=== PATIENT | female | born 1965 | race African-American/Black ===

== ENCOUNTER 2019-09-17 18:05 | Inpatient (IN) | payer OTHER ==
--- NOTE | 2019-09-17 19:04 | BHS.RME ---
Substance Use & Tx History - Substance Use History Alcohol Substance amount: 2 pints Frequency of use: Daily Substance route: Oral - Last Treatment Date of last treatment: unknown Where was last treatment: Detox Physical/Psych/Mental Status - Behavior Eye Contact: Normal - Cooperativeness Cooperativeness: Cooperative - Thinking Thought Processes: Logical - Physical Health Problems Is patient presently having any pain?: Yes Does patient presently have any injuries (include location): No Does patient currently have a fever: No CIWA Nausea/Vomitin-Mild Nausea/No Vomiting Muscle Tremors: 4-Moderate,w/Arms Extend Anxiety: 2 Agitation: 4-Moderately Restless Paroxysmal Sweats: No Perspiration Orientation: 0-Oriented Tacttile Disturbances: 0-None Auditory Disturbances: 0-None Visual Disturbances: 3-Moderate Sensitivity Headache: 2-Mild CIWA-Ar Total Score: 16
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
[2019-09-17] MEDS ORDERED: ALBUTEROL SO4 HFA INHALER IH PRN (19:15)
[2019-09-17] MEDS ORDERED: ALBUTEROL SO4 0.083% IH SOL 2.5 MG/3 ML VIAL.NEB. NEB PRN (19:15)
[2019-09-17] MEDS ORDERED: NICOTINE POLACRILEX 2 MG GUM BUC PRN (20:03)
[2019-09-17] MEDS ORDERED: BISMUTH SUBSALICYLATE 524 MG/30 ML UD PO PRN (20:03)
[2019-09-17] MEDS ORDERED: MENTHOL/PHENOL 1 EACH UD MM PRN (20:03)
[2019-09-17] MEDS ORDERED: ACETAMINOPHEN 325 MG TABLET (FP) PO PRN ×2 (20:03)
[2019-09-17] MEDS ORDERED: MAGNESIUM HYDROX 2400MG/30ML ORAL SUSPENSION 30 ML CUP PO PRN (20:03)
[2019-09-17] MEDS ORDERED: MAG HYDROX/AL HYDROX/SIMETH 30 ML UNIT-DOSE CUP PO PRN (20:03)
[2019-09-17] MEDS ORDERED: hydrOXYzine PAMOATE 25 MG CAPSULE (FP) PO PRN (20:03)
[2019-09-17] MEDS ORDERED: METHOCARBAMOL 500 MG TABLET PO PRN (20:03)
[2019-09-17] MEDS ORDERED: IBUPROFEN 400 MG TABLET (FP) PO PRN (20:03)
[2019-09-17] MEDS ORDERED: MAGNESIUM CITRATE 300 ML BOTTLE PO PRN (20:03)
[2019-09-17] MEDS ORDERED: chlordiazePOXIDE HCL 10 MG CAPSULE PO PRN (20:06)
[2019-09-17 20:41] VITALS: BMI 25.1
[2019-09-17] MEDS: THIAMINE HCL 100 MG TABLET (FP) PO SCH (21:56)
[2019-09-17] MEDS: chlordiazePOXIDE HCL 25 MG CAPSULE PO SCH (21:56)
[2019-09-17] MEDS: MELATONIN 5 MG TABLETS PO PRN (21:56)
[2019-09-18] MEDS: chlordiazePOXIDE HCL 25 MG CAPSULE PO SCH ×3 (05:28→21:43)
[2019-09-18] MEDS ORDERED: METHADONE HCL 10 MG TABLET PO ONE (09:04)
[2019-09-18] MEDS ORDERED: PANTOPRAZOLE 40 MG TABLET PO ONE (09:41)
[2019-09-18] MEDS ORDERED: METHADONE 80 MG, METHADONE 5 MG PO ONE (10:05)
[2019-09-18] MEDS ORDERED: METHADONE HCL 40 MG DISPERSABLE TABLET ONE (10:10)
[2019-09-18] MEDS ORDERED: METHADONE HCL 5 MG TABLET ONE (10:11)
--- NOTE | 2019-09-18 10:41 | PN ---
S CIWA - CIWA Score Nausea/Vomitin-Mild Nausea/No Vomiting Muscle Tremors: 2 Anxiety: 2 Agitation: 2 Paroxysmal Sweats: No Perspiration Orientation: 0-Oriented Tacttile Disturbances: 1-Very Mild Itch/Numbness Auditory Disturbances: 0-None Visual Disturbances: 0-None Headache: 1-Very Mild CIWA-Ar Total Score: 9 S Progress Note (SOAP) Subjective: alert,irritable,anxious,interrupted ,abdominal pain,nausea,tremor Objective: 09/18/19 10:45 Vital Signs Temperature 98.1 F 09/18/19 08:37 Pulse Rate 70 09/18/19 08:37 Respiratory Rate 16 09/18/19 08:37 Blood Pressure 143/84 09/18/19 08:37 O2 Sat by Pulse Oximetry (%) 97 09/18/19 05:20 09/18/19 10:45 labs pending Assessment: 09/18/19 10:46 withdrawal symptom 09/18/19 10:47 abdomen soft,pain in epigastrium,no tenderness Plan: continue detox librium regimen,blood for amylase and lipase,protonix 40 mgs po daily
[2019-09-18 10:46] LABS: HEMOGLOBIN 11.7 GM/dL (10.7-15.3); MCH 26.3 pg (25.7-33.7); MCHC 31.6 g/dl (32.0-36.0); MEAN CELL VOLUME 83.2 fl (80-96); MEAN PLT VOLUME 9.3 fl (7.5-11.1); PLATELET COUNT 257 K/MM3 (134-434); RBC 4.45 M/mm3 (3.60-5.2); RDW 14.1 % (11.6-15.6); WHITE BLOOD COUNT 4.5 K/mm3 (4.0-10.0)
[2019-09-18 11:03] LABS: BLOOD UREA NITROGEN 20.6 mg/dL (7-18); POTASSIUM 3.9 mmol/L (3.5-5.1)
[2019-09-18 11:05] LABS: ALBUMIN 3.5 g/dl (3.4-5.0); BILIRUBIN,TOTAL 0.4 mg/dL (0.2-1); CALCIUM 9.3 mg/dL (8.5-10.1); TOT PROT 7.6 g/dl (6.4-8.2)
[2019-09-18] MEDS: PRENATAL VITAMINS W/ FOLIC ACID TABLET (FP) PO SCH (11:11)
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
[2019-09-18] MEDS: THIAMINE HCL 100 MG TABLET (FP) PO SCH (21:44)
[2019-09-18] MEDS: MELATONIN 5 MG TABLETS PO PRN (21:45)
[2019-09-18] MEDS: QUEtiapine FUMARATE 50 MG TABLET PO SCH (22:24)
[2019-09-19] MEDS ORDERED: METHADONE HCL 5 MG TABLET ONE (04:08)
[2019-09-19] MEDS ORDERED: METHADONE HCL 40 MG DISPERSABLE TABLET ONE (04:08)
[2019-09-19] MEDS: METHADONE 80 MG, METHADONE 5 MG PO SCH (05:27)
[2019-09-19] MEDS: chlordiazePOXIDE 5 MG CAPSULE PO SCH ×3 (05:27→22:25)
[2019-09-19] MEDS ORDERED: METHADONE HCL 40 MG DISPERSABLE TABLET PO SCH (06:00)
[2019-09-19] MEDS: PRENATAL VITAMINS W/ FOLIC ACID TABLET (FP) PO SCH (10:31)
[2019-09-19] MEDS: HYDROCHLOROTHIAZIDE 25 MG TABLET (FP) PO SCH (10:32)
--- NOTE | 2019-09-19 10:52 | PN ---
S CIWA - CIWA Score Nausea/Vomitin Muscle Tremors: 2 Anxiety: 2 Agitation: 2 Paroxysmal Sweats: No Perspiration Orientation: 0-Oriented Tacttile Disturbances: 0-None Auditory Disturbances: 0-None Visual Disturbances: 0-None Headache: 1-Very Mild CIWA-Ar Total Score: 9 BHS Progress Note (SOAP) Subjective: alert,irritable,anxious,interrupted sleep,tremor,nausea,no abdominal pain Objective: 09/19/19 10:50 Vital Signs Temperature 97.3 F L 09/19/19 08:42 Pulse Rate 88 09/19/19 08:42 Respiratory Rate 18 09/19/19 08:42 Blood Pressure 135/90 09/19/19 08:42 O2 Sat by Pulse Oximetry (%) 97 09/19/19 06:27 09/19/19 10:50 Laboratory Last Values WBC 4.5 K/mm3 (4.0-10.0) 09/18/19 08:00 RBC 4.45 M/mm3 (3.60-5.2) 09/18/19 08:00 Hgb 11.7 GM/dL (10.7-15.3) 09/18/19 08:00 Hct 37.0 % (32.4-45.2) 09/18/19 08:00 MCV 83.2 fl (80-96) 09/18/19 08:00 MCH 26.3 pg (25.7-33.7) 09/18/19 08:00 MCHC 31.6 g/dl (32.0-36.0) L 09/18/19 08:00 RDW 14.1 % (11.6-15.6) 09/18/19 08:00 Plt Count 257 K/MM3 (134-434) D 09/18/19 08:00 MPV 9.3 fl (7.5-11.1) 09/18/19 08:00 Sodium 138 mmol/L (136-145) 09/18/19 08:00 Potassium 3.9 mmol/L (3.5-5.1) 09/18/19 08:00 Chloride 101 mmol/L (98-107) 09/18/19 08:00 Carbon Dioxide 33 mmol/L (21-32) H 09/18/19 08:00 Anion Gap 5 MMOL/L (8-16) L 09/18/19 08:00 BUN 20.6 mg/dL (7-18) H 09/18/19 08:00 Creatinine 1.0 mg/dL (0.55-1.3) 09/18/19 08:00 Est GFR (CKD-EPI)AfAm 73.97 09/18/19 08:00 Est GFR (CKD-EPI)NonAf 63.82 09/18/19 08:00 Random Glucose 66 mg/dL (74-106) L 09/18/19 08:00 Calcium 9.3 mg/dL (8.5-10.1) 09/18/19 08:00 Total Bilirubin 0.4 mg/dL (0.2-1) 09/18/19 08:00 AST 30 U/L (15-37) 09/18/19 08:00 ALT 43 U/L (13-61) 09/18/19 08:00 Alkaline Phosphatase 82 U/L (45-117) 09/18/19 08:00 Total Protein 7.6 g/dl (6.4-8.2) 09/18/19 08:00 Albumin 3.5 g/dl (3.4-5.0) 09/18/19 08:00 Total Amylase 93 U/L (25-115) 09/18/19 08:00 Lipase 71 U/L (73-393) L 09/18/19 08:00 Syphilis Serology Non-reactive (NONREACTIVE) 09/18/19 08:00 Assessment: 09/19/19 10:51 withdrawal symptom Plan: continue detox librium regimen,encourage orlal fluid,repeat b,p in am
[2019-09-19] MEDS: THIAMINE HCL 100 MG TABLET (FP) PO SCH (22:22)
[2019-09-19] MEDS: QUEtiapine FUMARATE 50 MG TABLET PO SCH (22:24)
[2019-09-20] MEDS ORDERED: chlordiazePOXIDE HCL 10 MG CAPSULE PO PRN
[2019-09-20] MEDS ORDERED: METHADONE HCL 40 MG DISPERSABLE TABLET ONE (04:27)
[2019-09-20] MEDS ORDERED: METHADONE HCL 5 MG TABLET ONE (04:28)
[2019-09-20] MEDS: METHADONE 80 MG, METHADONE 5 MG PO SCH (06:17)
[2019-09-20] MEDS: chlordiazePOXIDE HCL 10 MG CAPSULE PO SCH ×3 (06:20→21:57)
[2019-09-20 10:02] LABS: BLOOD UREA NITROGEN 17.1 mg/dL (7-18); CALCIUM 9.1 mg/dL (8.5-10.1); POTASSIUM 3.9 mmol/L (3.5-5.1)
[2019-09-20] MEDS: PRENATAL VITAMINS W/ FOLIC ACID TABLET (FP) PO SCH (10:34)
[2019-09-20] MEDS: HYDROCHLOROTHIAZIDE 25 MG TABLET (FP) PO SCH (10:34)
--- NOTE | 2019-09-20 12:32 | PN ---
BHS Progress Note Note: Psychiatric nurse practitioner note: Informed by DARIN Rodriguez that patient is requesting Seroquel 25mg. Patient is currently ordered Seroquel 50mg HS. Will d/c Seroquel 50mg and will order Seroquel 25mg HS.
--- NOTE | 2019-09-20 15:46 | PN ---
S CIWA - CIWA Score Nausea/Vomitin-No Nausea/No Vomiting Muscle Tremors: 2 Anxiety: 3 Agitation: 2 Paroxysmal Sweats: No Perspiration Orientation: 0-Oriented Tacttile Disturbances: 0-None Auditory Disturbances: 0-None Visual Disturbances: 0-None Headache: 0-None Present CIWA-Ar Total Score: 7 BHS Progress Note (SOAP) Subjective: Anxious, Interrupted Sleep. Patient reports That Current withdrawal Detox Symptoms have Subsided considerably in Severity since time of admission to Detox. Objective: Patient A & O X 3, Observed Ambulating on Detox Unit Unassisted. In No Acute Distress. 09/20/19 15:44 Vital Signs Temperature 97.3 F L 09/20/19 12:40 Pulse Rate 85 09/20/19 12:40 Respiratory Rate 18 09/20/19 12:40 Blood Pressure 128/80 09/20/19 12:40 O2 Sat by Pulse Oximetry (%) 99 09/20/19 12:40 Laboratory Tests 09/17/19 09/18/19 09/18/19 23:19 08:00 08:00 WBC 4.5 RBC 4.45 Hgb 11.7 Hct 37.0 MCV 83.2 MCH 26.3 MCHC 31.6 L RDW 14.1 Plt Count 257 D MPV 9.3 Sodium Potassium Chloride Carbon Dioxide Anion Gap BUN Creatinine Est GFR (CKD-EPI)AfAm Est GFR (CKD-EPI)NonAf Random Glucose Calcium Total Bilirubin AST ALT Alkaline Phosphatase Total Protein Albumin Total Amylase Lipase Syphilis Serology Non-reactive COVID-19 (FAUSTINO) Not detected 09/18/19 09/20/19 08:00 07:25 WBC RBC Hgb Hct MCV MCH MCHC RDW Plt Count MPV Sodium 138 138 Potassium 3.9 3.9 Chloride 101 99 Carbon Dioxide 33 H 33 H Anion Gap 5 L 5 L BUN 20.6 H 17.1 Creatinine 1.0 1.0 Est GFR (CKD-EPI)AfAm 73.97 73.97 Est GFR (CKD-EPI)NonAf 63.82 63.82 Random Glucose 66 L 115 H Calcium 9.3 9.1 Total Bilirubin 0.4 AST 30 ALT 43 Alkaline Phosphatase 82 Total Protein 7.6 Albumin 3.5 Total Amylase 93 Lipase 71 L Syphilis Serology COVID-19 (FAUSTINO) Lab Results noted. Assessment: 09/20/19 15:46 WITHDRAWAL SYMPTOMS. Plan: Continue Detox. Increase Daily Oral Water Intake. Patient scheduled for d/c from detox unit tomorrow.
[2019-09-20] MEDS: THIAMINE HCL 100 MG TABLET (FP) PO SCH (21:58)
[2019-09-20] MEDS ORDERED: QUEtiapine FUMARATE 25 MG TABLET PO SCH (22:00)
[2019-09-21] MEDS ORDERED: METHADONE HCL 5 MG TABLET ONE (04:30)
[2019-09-21] MEDS ORDERED: METHADONE HCL 40 MG DISPERSABLE TABLET ONE (04:30)
[2019-09-21] MEDS ORDERED: chlordiazePOXIDE HCL 10 MG CAPSULE PO ONE (05:00)
[2019-09-21] MEDS: METHADONE 80 MG, METHADONE 5 MG PO SCH (05:24)
[2019-09-21] MEDS: PRENATAL VITAMINS W/ FOLIC ACID TABLET (FP) PO SCH (11:00)
[2019-09-21] MEDS: HYDROCHLOROTHIAZIDE 25 MG TABLET (FP) PO SCH (11:00)
[2019-09-21 13:38] VITALS: BP 129/81; PULSE 93; TEMP 97.7
--- NOTE | 2019-09-21 14:22 | DS ---
[facility] Detox Discharge Summary Admission Date: 09/17/19 Discharge Date: 09/21/19 - History Present History: Alcohol Dependence Additional Comments: Patient completed detox successfully and awaiting admission to [facility] rehab as per chart. Patient is stable for discharge. Follow up with PCP within 1-2 weeks post discharge. Pertinent Past History: Asthma HLD HTN Chronic knee and back pain Alcohol dependence Nicotine dependence - Physical Exam Results Vital Signs: Vital Signs Temperature 97.7 F 09/21/19 13:37 Pulse Rate 93 H 09/21/19 13:37 Respiratory Rate 17 09/21/19 13:37 Blood Pressure 129/81 09/21/19 13:37 O2 Sat by Pulse Oximetry (%) 98 09/21/19 13:37 Pertinent Admission Physical Exam Findings: Withdrawal sxs Laboratory Tests 09/17/19 09/18/19 09/18/19 23:19 08:00 08:00 WBC 4.5 RBC 4.45 Hgb 11.7 Hct 37.0 MCV 83.2 MCH 26.3 MCHC 31.6 L RDW 14.1 Plt Count 257 D MPV 9.3 Sodium Potassium Chloride Carbon Dioxide Anion Gap BUN Creatinine Est GFR (CKD-EPI)AfAm Est GFR (CKD-EPI)NonAf Random Glucose Calcium Total Bilirubin AST ALT Alkaline Phosphatase Total Protein Albumin Total Amylase Lipase Syphilis Serology Non-reactive COVID-19 (FAUSTINO) Not detected 09/18/19 09/20/19 08:00 07:25 WBC RBC Hgb Hct MCV MCH MCHC RDW Plt Count MPV Sodium 138 138 Potassium 3.9 3.9 Chloride 101 99 Carbon Dioxide 33 H 33 H Anion Gap 5 L 5 L BUN 20.6 H 17.1 Creatinine 1.0 1.0 Est GFR (CKD-EPI)AfAm 73.97 73.97 Est GFR (CKD-EPI)NonAf 63.82 63.82 Random Glucose 66 L 115 H Calcium 9.3 9.1 Total Bilirubin 0.4 AST 30 ALT 43 Alkaline Phosphatase 82 Total Protein 7.6 Albumin 3.5 Total Amylase 93 Lipase 71 L Syphilis Serology COVID-19 (FAUSTINO) Labs reviewed - Treatment Hospital Course: Detox Protocol Followed, Detoxed Safely, Responded well, Discharged Condition Good, Rehab Referral Accepted - Medication Discharge Medications: Ambulatory Orders Albuterol Sulfate Inhaler - [Ventolin Hfa *Inhaler*] 1 - 2 inh IH Q4H PRN 10/03/11 Quetiapine Fumarate [Seroquel] 50 mg PO HS 10/03/11 Hydrochlorothiazide [Hctz -] 25 mg PO DAILY 09/17/19 Methadone [Dolophine -] 85 ml PO DAILY 09/17/19 - Diagnosis (1) Asthma Current Visit: Yes Status: Chronic (2) HTN (hypertension), benign Current Visit: Yes Status: Chronic (3) HLD (hyperlipidemia) Current Visit: Yes Status: Chronic (4) Chronic back pain Current Visit: Yes Status: Chronic (5) Chronic knee pain Current Visit: Yes Status: Chronic (6) Nicotine dependence Current Visit: Yes Status: Chronic (7) Alcohol dependence with uncomplicated withdrawal Current Visit: Yes Status: Acute - AMA Did Patient Leave Against Medical Advice: No (Patient accepted admission to [facility] rehab)
== END 2019-09-21 14:20 | disposition other institution (70) | DRG 773 ==
LOC: YASAS 18:05 → Y6N 20:17
PROVIDERS: ADMIT Allergy & Immunology; ATTEND Allergy & Immunology
PROC: HZ2ZZZZ Detoxification Services for Substance Abuse Treatment (ICD-10-PCS; principal; 2019-09-17)
DX: F10.230 Alcohol dependence with withdrawal, uncomplicated (principal); F11.20 Opioid dependence, uncomplicated; F17.210 Nicotine dependence, cigarettes, uncomplicated; F19.282 Other psychoactive substance dependence with psychoactive substance-induced sleep disorder; F41.9 Anxiety disorder, unspecified; I10 Essential (primary) hypertension; E78.5 Hyperlipidemia, unspecified; M54.9 Dorsalgia, unspecified; M25.569 Pain in unspecified knee; G89.29 Other chronic pain; J45.909 Unspecified asthma, uncomplicated; D64.9 Anemia, unspecified; Z91.018 Allergy to other foods
CPT/HCPCS: 36415; 71046-TC-FY; 80048; 80053; 82150; 83690; 85027; 86780; U0003

== ENCOUNTER 2019-09-21 14:50 | Inpatient (IN) | payer OTHER ==
[2019-09-21] MEDS ORDERED: LOPERAMIDE HCL 2 MG CAPSULE PO PRN (15:22)
[2019-09-21] MEDS ORDERED: MAGNESIUM HYDROX 2400MG/30ML ORAL SUSPENSION 30 ML CUP PO PRN (15:22)
[2019-09-21] MEDS ORDERED: MAGNESIUM CITRATE 300 ML BOTTLE PO PRN (15:22)
[2019-09-21] MEDS ORDERED: P-EPHED 60MG/TRIPROLIDI 2.5MG TABLET PO PRN (15:22)
[2019-09-21] MEDS ORDERED: ACETAMINOPHEN 325 MG TABLET (FP) PO PRN (15:22)
[2019-09-21] MEDS ORDERED: guaiFENesin 200 MG/10 ML 10 ML UNIT-DOSE CUPS PO PRN (15:22)
[2019-09-21] MEDS ORDERED: IBUPROFEN 400 MG TABLET (FP) PO PRN (15:22)
[2019-09-21] MEDS ORDERED: NICOTINE POLACRILEX 2 MG GUM BUC PRN (15:22)
[2019-09-21] MEDS ORDERED: MENTHOL/PHENOL 1 EACH UD MM PRN (15:22)
[2019-09-21] MEDS ORDERED: MAG HYDROX/AL HYDROX/SIMETH 30 ML UNIT-DOSE CUP PO PRN (15:22)
--- NOTE | 2019-09-21 15:22 | HP ---
[facility] Rehab Assess/Revision - Admission History Admitted to Rehab from[facility] - Findings Detox History & Physical reviewed: Yes Concur with findings: Yes Inpatient Rehab Admission - Rehab Decision to Admit Inpatient rehab admission?: Yes - Initial Determination Are CD services needed?: No Free of communicable disease: Yes Not in need of hospitalization: No - Rehab Admission Criteria Previous failed treatment: Yes Poor recovery environment: Yes Comorbidities: Yes Lacks judgement: Yes Patient is meeting Inpatient Rehab admission criteria:: Yes
[2019-09-21] MEDS ORDERED: ALBUTEROL SO4 HFA INHALER IH PRN (15:26)
[2019-09-21] MEDS: THIAMINE HCL 100 MG TABLET (FP) PO SCH (21:34)
[2019-09-21] MEDS: MELATONIN 5 MG TABLETS PO SCH (21:34)
[2019-09-21] MEDS: QUEtiapine FUMARATE 25 MG TABLET PO SCH (21:40)
[2019-09-22] MEDS ORDERED: METHADONE HCL 40 MG DISPERSABLE TABLET ONE (05:03)
[2019-09-22] MEDS ORDERED: METHADONE HCL 5 MG TABLET ONE (05:03)
[2019-09-22] MEDS ORDERED: METHADONE HCL 10 MG TABLET PO SCH (06:00)
[2019-09-22] MEDS: METHADONE 80 MG, METHADONE 5 MG PO SCH (06:38)
[2019-09-22] MEDS: hydrOXYzine PAMOATE 25 MG CAPSULE (FP) PO PRN ×2 (10:57→22:26)
[2019-09-22] MEDS: PRENATAL VITAMINS W/ FOLIC ACID TABLET (FP) PO SCH (10:57)
[2019-09-22] MEDS: HYDROCHLOROTHIAZIDE 25 MG TABLET (FP) PO SCH (10:57)
[2019-09-22] MEDS: THIAMINE HCL 100 MG TABLET (FP) PO SCH (22:26)
[2019-09-22] MEDS: MELATONIN 5 MG TABLETS PO SCH (22:26)
[2019-09-22] MEDS: QUEtiapine FUMARATE 25 MG TABLET PO SCH (22:26)
[2019-09-23] MEDS ORDERED: METHADONE HCL 5 MG TABLET ONE (05:05)
[2019-09-23] MEDS ORDERED: METHADONE HCL 40 MG DISPERSABLE TABLET ONE ×2 (05:05→12:01)
[2019-09-23] MEDS: METHADONE 80 MG, METHADONE 5 MG PO SCH (07:08)
[2019-09-23] MEDS: HYDROCHLOROTHIAZIDE 25 MG TABLET (FP) PO SCH (10:27)
[2019-09-23] MEDS: PRENATAL VITAMINS W/ FOLIC ACID TABLET (FP) PO SCH (10:27)
[2019-09-23] MEDS ORDERED: METHADONE HCL 10 MG TABLET PO SCH (11:45)
[2019-09-23] MEDS ORDERED: METHADONE HCL 10 MG TABLET ONE (12:01)
--- NOTE | 2019-09-23 12:04 | PN ---
[facility] Progress Note Note: Patient seen prior to conversation and she was attending group and was asleep. Spoke to patient who feels that she is too sedated to benefit from group therapy. She would not wish to take the methadone 85mg which was her maintenance dose at her clinic at [facility] on [address]. Called [phone] Martinez who approved decrease of methadone dose from 85 mg to 50 mg at this time. If she feels uncomfortable on that dose, I will have the leeway to increase it higher. Dr. Hester
[2019-09-23] MEDS: METHADONE 40 MG, METHADONE 10 MG PO SCH (14:09)
[2019-09-23] MEDS: THIAMINE HCL 100 MG TABLET (FP) PO SCH (21:31)
[2019-09-23] MEDS: QUEtiapine FUMARATE 25 MG TABLET PO SCH (21:31)
[2019-09-23] MEDS: MELATONIN 5 MG TABLETS PO SCH (21:31)
[2019-09-24] MEDS ORDERED: METHADONE HCL 10 MG TABLET ONE (05:35)
[2019-09-24] MEDS ORDERED: METHADONE HCL 40 MG DISPERSABLE TABLET ONE (05:36)
[2019-09-24] MEDS: METHADONE 40 MG, METHADONE 10 MG PO SCH (06:00)
[2019-09-24] MEDS: PRENATAL VITAMINS W/ FOLIC ACID TABLET (FP) PO SCH (11:31)
[2019-09-24] MEDS: HYDROCHLOROTHIAZIDE 25 MG TABLET (FP) PO SCH (11:31)
[2019-09-24] MEDS: QUEtiapine FUMARATE 25 MG TABLET PO SCH (21:50)
[2019-09-24] MEDS: MELATONIN 5 MG TABLETS PO SCH (21:50)
[2019-09-24] MEDS: THIAMINE HCL 100 MG TABLET (FP) PO SCH (21:50)
[2019-09-25] MEDS ORDERED: METHADONE HCL 40 MG DISPERSABLE TABLET ONE (03:27)
[2019-09-25] MEDS ORDERED: METHADONE HCL 10 MG TABLET ONE (03:27)
[2019-09-25] MEDS: METHADONE 40 MG, METHADONE 10 MG PO SCH (05:56)
--- NOTE | 2019-09-25 10:49 | PN ---
S Progress Note (SOAP) Subjective: Patient reports that she has swollen ankles. Also reports 10 pound weight gain since admitted to facility. Objective: 09/25/19 10:47 Vital Signs Period Temp Pulse Resp BP Sys/Vega Pulse Ox Last 24 Hr 97.1 F-97.8 F 87-90 18-18 121-133/75-80 95-97 Assessment: ankle edema 09/25/19 10:48 Plan: Will order EDY stockings Encouraged patient to elevate legs at rest. Increase walking.
[2019-09-25] MEDS: HYDROCHLOROTHIAZIDE 25 MG TABLET (FP) PO SCH (11:00)
[2019-09-25] MEDS: PRENATAL VITAMINS W/ FOLIC ACID TABLET (FP) PO SCH (11:00)
[2019-09-25] MEDS: QUEtiapine FUMARATE 25 MG TABLET PO SCH (21:18)
[2019-09-25] MEDS: MELATONIN 5 MG TABLETS PO SCH (21:18)
[2019-09-25] MEDS: THIAMINE HCL 100 MG TABLET (FP) PO SCH (21:18)
[2019-09-26] MEDS ORDERED: METHADONE HCL 10 MG TABLET ONE (05:36)
[2019-09-26] MEDS ORDERED: METHADONE HCL 40 MG DISPERSABLE TABLET ONE (05:37)
[2019-09-26] MEDS: METHADONE 40 MG, METHADONE 10 MG PO SCH (07:27)
[2019-09-26] MEDS: PRENATAL VITAMINS W/ FOLIC ACID TABLET (FP) PO SCH (10:46)
[2019-09-26] MEDS: HYDROCHLOROTHIAZIDE 25 MG TABLET (FP) PO SCH (10:46)
[2019-09-26] MEDS: THIAMINE HCL 100 MG TABLET (FP) PO SCH (21:36)
[2019-09-26] MEDS: MELATONIN 5 MG TABLETS PO SCH (21:36)
[2019-09-26] MEDS: QUEtiapine FUMARATE 25 MG TABLET PO SCH (21:36)
[2019-09-27] MEDS ORDERED: METHADONE HCL 10 MG TABLET ONE (05:02)
[2019-09-27] MEDS ORDERED: METHADONE HCL 40 MG DISPERSABLE TABLET ONE (05:02)
[2019-09-27] MEDS: METHADONE 40 MG, METHADONE 10 MG PO SCH (06:03)
[2019-09-27] MEDS: PRENATAL VITAMINS W/ FOLIC ACID TABLET (FP) PO SCH (10:26)
[2019-09-27] MEDS: HYDROCHLOROTHIAZIDE 25 MG TABLET (FP) PO SCH (10:26)
[2019-09-27] MEDS: QUEtiapine FUMARATE 25 MG TABLET PO SCH (21:52)
[2019-09-27] MEDS: THIAMINE HCL 100 MG TABLET (FP) PO SCH (21:52)
[2019-09-27] MEDS: MELATONIN 5 MG TABLETS PO SCH (21:52)
[2019-09-28] MEDS ORDERED: METHADONE HCL 10 MG TABLET ONE (05:33)
[2019-09-28] MEDS ORDERED: METHADONE HCL 40 MG DISPERSABLE TABLET ONE (05:33)
[2019-09-28] MEDS: METHADONE 40 MG, METHADONE 10 MG PO SCH (06:09)
[2019-09-28] MEDS: HYDROCHLOROTHIAZIDE 25 MG TABLET (FP) PO SCH (10:33)
[2019-09-28] MEDS: PRENATAL VITAMINS W/ FOLIC ACID TABLET (FP) PO SCH (10:34)
[2019-09-28] MEDS: QUEtiapine FUMARATE 25 MG TABLET PO SCH (22:18)
[2019-09-28] MEDS: MELATONIN 5 MG TABLETS PO SCH (22:18)
[2019-09-28] MEDS: THIAMINE HCL 100 MG TABLET (FP) PO SCH (22:18)
[2019-09-29] MEDS ORDERED: METHADONE HCL 40 MG DISPERSABLE TABLET ONE (03:29)
[2019-09-29] MEDS ORDERED: METHADONE HCL 10 MG TABLET ONE (03:29)
[2019-09-29] MEDS: METHADONE 40 MG, METHADONE 10 MG PO SCH (05:58)
[2019-09-29] MEDS: PRENATAL VITAMINS W/ FOLIC ACID TABLET (FP) PO SCH (10:12)
[2019-09-29] MEDS: HYDROCHLOROTHIAZIDE 25 MG TABLET (FP) PO SCH (10:12)
[2019-09-29] MEDS: QUEtiapine FUMARATE 25 MG TABLET PO SCH (21:17)
[2019-09-29] MEDS: MELATONIN 5 MG TABLETS PO SCH (21:17)
[2019-09-29] MEDS: THIAMINE HCL 100 MG TABLET (FP) PO SCH (21:17)
[2019-09-30] MEDS ORDERED: METHADONE HCL 10 MG TABLET ONE (03:45)
[2019-09-30] MEDS ORDERED: METHADONE HCL 40 MG DISPERSABLE TABLET ONE (03:46)
[2019-09-30] MEDS: METHADONE 40 MG, METHADONE 10 MG PO SCH (06:46)
[2019-09-30] MEDS: HYDROCHLOROTHIAZIDE 25 MG TABLET (FP) PO SCH (09:51)
[2019-09-30] MEDS: PRENATAL VITAMINS W/ FOLIC ACID TABLET (FP) PO SCH (09:51)
[2019-09-30] MEDS: DOCUSATE SODIUM 100 MG CAPSULE (FP) PO SCH (21:29)
[2019-09-30] MEDS: MELATONIN 5 MG TABLETS PO SCH (21:29)
[2019-09-30] MEDS: THIAMINE HCL 100 MG TABLET (FP) PO SCH (21:29)
[2019-09-30] MEDS: QUEtiapine FUMARATE 25 MG TABLET PO SCH (21:30)
[2019-10-01] MEDS ORDERED: METHADONE HCL 40 MG DISPERSABLE TABLET ONE (05:10)
[2019-10-01] MEDS ORDERED: METHADONE HCL 10 MG TABLET ONE (05:10)
[2019-10-01] MEDS ORDERED: METHADONE HCL 10 MG TABLET PO SCH (06:00)
[2019-10-01] MEDS: METHADONE 40 MG, METHADONE 10 MG PO SCH (06:18)
[2019-10-01] MEDS: PRENATAL VITAMINS W/ FOLIC ACID TABLET (FP) PO SCH (10:26)
[2019-10-01] MEDS: HYDROCHLOROTHIAZIDE 25 MG TABLET (FP) PO SCH (10:26)
[2019-10-01] MEDS: THIAMINE HCL 100 MG TABLET (FP) PO SCH (21:25)
[2019-10-01] MEDS: MELATONIN 5 MG TABLETS PO SCH (21:25)
[2019-10-01] MEDS: DOCUSATE SODIUM 100 MG CAPSULE (FP) PO SCH (21:25)
[2019-10-01] MEDS: QUEtiapine FUMARATE 25 MG TABLET PO SCH (21:26)
[2019-10-02] MEDS ORDERED: METHADONE HCL 40 MG DISPERSABLE TABLET ONE (05:07)
[2019-10-02] MEDS ORDERED: METHADONE HCL 10 MG TABLET ONE (05:07)
[2019-10-02] MEDS: METHADONE 40 MG, METHADONE 10 MG PO SCH (06:11)
[2019-10-02] MEDS: PRENATAL VITAMINS W/ FOLIC ACID TABLET (FP) PO SCH (10:32)
[2019-10-02] MEDS: HYDROCHLOROTHIAZIDE 25 MG TABLET (FP) PO SCH (10:32)
[2019-10-02] MEDS: QUEtiapine FUMARATE 25 MG TABLET PO SCH (21:22)
[2019-10-02] MEDS: THIAMINE HCL 100 MG TABLET (FP) PO SCH (21:22)
[2019-10-02] MEDS: DOCUSATE SODIUM 100 MG CAPSULE (FP) PO SCH (21:22)
[2019-10-02] MEDS: MELATONIN 5 MG TABLETS PO SCH (21:23)
[2019-10-03] MEDS ORDERED: METHADONE HCL 10 MG TABLET ONE (05:34)
[2019-10-03] MEDS ORDERED: METHADONE HCL 40 MG DISPERSABLE TABLET ONE (05:35)
[2019-10-03] MEDS: METHADONE 40 MG, METHADONE 10 MG PO SCH (06:29)
[2019-10-03] MEDS: HYDROCHLOROTHIAZIDE 25 MG TABLET (FP) PO SCH (10:13)
[2019-10-03] MEDS: PRENATAL VITAMINS W/ FOLIC ACID TABLET (FP) PO SCH (10:13)
[2019-10-03] MEDS: DOCUSATE SODIUM 100 MG CAPSULE (FP) PO SCH (21:37)
[2019-10-03] MEDS: MELATONIN 5 MG TABLETS PO SCH (21:37)
[2019-10-03] MEDS: THIAMINE HCL 100 MG TABLET (FP) PO SCH (21:37)
[2019-10-03] MEDS: QUEtiapine FUMARATE 25 MG TABLET PO SCH (21:37)
[2019-10-04] MEDS ORDERED: METHADONE HCL 40 MG DISPERSABLE TABLET ONE (03:37)
[2019-10-04] MEDS ORDERED: METHADONE HCL 10 MG TABLET ONE (03:37)
[2019-10-04] MEDS: METHADONE 40 MG, METHADONE 10 MG PO SCH (06:44)
[2019-10-04] MEDS: PRENATAL VITAMINS W/ FOLIC ACID TABLET (FP) PO SCH (09:26)
[2019-10-04] MEDS: HYDROCHLOROTHIAZIDE 25 MG TABLET (FP) PO SCH (09:26)
[2019-10-04] MEDS: THIAMINE HCL 100 MG TABLET (FP) PO SCH (21:10)
[2019-10-04] MEDS: MELATONIN 5 MG TABLETS PO SCH (21:10)
[2019-10-04] MEDS: QUEtiapine FUMARATE 25 MG TABLET PO SCH (21:11)
[2019-10-04] MEDS: DOCUSATE SODIUM 100 MG CAPSULE (FP) PO SCH (21:11)
[2019-10-05] MEDS ORDERED: METHADONE HCL 10 MG TABLET ONE (03:31)
[2019-10-05] MEDS ORDERED: METHADONE HCL 40 MG DISPERSABLE TABLET ONE (03:31)
[2019-10-05] MEDS: METHADONE 40 MG, METHADONE 10 MG PO SCH (06:21)
--- NOTE | 2019-10-05 08:20 | PN ---
[facility] Progress Note Note: Patient is scheduled for discharge tomorrow. Script for 30 days Seroquel 25 mg/hs will be electronically transmitted to [facility], [facility] [place] [address]
[2019-10-05] MEDS: HYDROCHLOROTHIAZIDE 25 MG TABLET (FP) PO SCH (10:38)
[2019-10-05] MEDS: PRENATAL VITAMINS W/ FOLIC ACID TABLET (FP) PO SCH (10:38)
[2019-10-05] MEDS: MELATONIN 5 MG TABLETS PO SCH (21:31)
[2019-10-05] MEDS: THIAMINE HCL 100 MG TABLET (FP) PO SCH (21:31)
[2019-10-05] MEDS: DOCUSATE SODIUM 100 MG CAPSULE (FP) PO SCH (21:31)
[2019-10-05] MEDS: QUEtiapine FUMARATE 25 MG TABLET PO SCH (21:32)
[2019-10-06] MEDS ORDERED: METHADONE HCL 40 MG DISPERSABLE TABLET ONE (05:32)
[2019-10-06] MEDS ORDERED: METHADONE HCL 10 MG TABLET ONE (05:32)
[2019-10-06] MEDS: METHADONE 40 MG, METHADONE 10 MG PO SCH (06:38)
[2019-10-06] MEDS: PRENATAL VITAMINS W/ FOLIC ACID TABLET (FP) PO SCH (10:35)
[2019-10-06] MEDS: HYDROCHLOROTHIAZIDE 25 MG TABLET (FP) PO SCH (10:35)
[2019-10-06] MEDS: DOCUSATE SODIUM 100 MG CAPSULE (FP) PO SCH (21:16)
[2019-10-06] MEDS: THIAMINE HCL 100 MG TABLET (FP) PO SCH (21:16)
[2019-10-06] MEDS: QUEtiapine FUMARATE 25 MG TABLET PO SCH (21:17)
[2019-10-06] MEDS: MELATONIN 5 MG TABLETS PO SCH (21:17)
[2019-10-07] MEDS ORDERED: METHADONE HCL 10 MG TABLET ONE (05:35)
[2019-10-07] MEDS ORDERED: METHADONE HCL 40 MG DISPERSABLE TABLET ONE (05:35)
[2019-10-07] MEDS: METHADONE 40 MG, METHADONE 10 MG PO SCH (06:34)
[2019-10-07] MEDS: PRENATAL VITAMINS W/ FOLIC ACID TABLET (FP) PO SCH (10:31)
[2019-10-07] MEDS: HYDROCHLOROTHIAZIDE 25 MG TABLET (FP) PO SCH (10:31)
[2019-10-07] MEDS: QUEtiapine FUMARATE 25 MG TABLET PO SCH (22:03)
[2019-10-07] MEDS: DOCUSATE SODIUM 100 MG CAPSULE (FP) PO SCH (22:03)
[2019-10-07] MEDS: THIAMINE HCL 100 MG TABLET (FP) PO SCH (22:03)
[2019-10-07] MEDS: MELATONIN 5 MG TABLETS PO SCH (22:03)
[2019-10-08] MEDS ORDERED: METHADONE HCL 10 MG TABLET ONE (05:36)
[2019-10-08] MEDS ORDERED: METHADONE HCL 40 MG DISPERSABLE TABLET ONE (05:37)
[2019-10-08] MEDS: METHADONE 40 MG, METHADONE 10 MG PO SCH (06:19)
[2019-10-08] MEDS: HYDROCHLOROTHIAZIDE 25 MG TABLET (FP) PO SCH (10:33)
[2019-10-08] MEDS: PRENATAL VITAMINS W/ FOLIC ACID TABLET (FP) PO SCH (10:33)
[2019-10-08] MEDS: MELATONIN 5 MG TABLETS PO SCH (21:23)
[2019-10-08] MEDS: THIAMINE HCL 100 MG TABLET (FP) PO SCH (21:23)
[2019-10-08] MEDS: QUEtiapine FUMARATE 25 MG TABLET PO SCH (21:23)
[2019-10-08] MEDS: DOCUSATE SODIUM 100 MG CAPSULE (FP) PO SCH (21:24)
[2019-10-09] MEDS ORDERED: METHADONE HCL 10 MG TABLET ONE (03:39)
[2019-10-09] MEDS ORDERED: METHADONE HCL 40 MG DISPERSABLE TABLET ONE (03:39)
[2019-10-09] MEDS: METHADONE 40 MG, METHADONE 10 MG PO SCH (06:08)
[2019-10-09] MEDS: PRENATAL VITAMINS W/ FOLIC ACID TABLET (FP) PO SCH (10:38)
[2019-10-09] MEDS: HYDROCHLOROTHIAZIDE 25 MG TABLET (FP) PO SCH (10:38)
[2019-10-09] MEDS: THIAMINE HCL 100 MG TABLET (FP) PO SCH (21:45)
[2019-10-09] MEDS: MELATONIN 5 MG TABLETS PO SCH (21:46)
[2019-10-09] MEDS: QUEtiapine FUMARATE 25 MG TABLET PO SCH (21:46)
[2019-10-09] MEDS: DOCUSATE SODIUM 100 MG CAPSULE (FP) PO SCH (21:46)
[2019-10-10] MEDS ORDERED: METHADONE HCL 10 MG TABLET ONE (05:40)
[2019-10-10] MEDS ORDERED: METHADONE HCL 40 MG DISPERSABLE TABLET ONE (05:40)
[2019-10-10] MEDS: METHADONE 40 MG, METHADONE 10 MG PO SCH (06:18)
[2019-10-10] MEDS: HYDROCHLOROTHIAZIDE 25 MG TABLET (FP) PO SCH (10:39)
[2019-10-10] MEDS: PRENATAL VITAMINS W/ FOLIC ACID TABLET (FP) PO SCH (10:39)
[2019-10-10] MEDS: QUEtiapine FUMARATE 25 MG TABLET PO SCH (21:05)
[2019-10-10] MEDS: MELATONIN 5 MG TABLETS PO SCH (21:05)
[2019-10-10] MEDS: THIAMINE HCL 100 MG TABLET (FP) PO SCH (21:05)
[2019-10-10] MEDS: DOCUSATE SODIUM 100 MG CAPSULE (FP) PO SCH (21:05)
[2019-10-11] MEDS ORDERED: METHADONE HCL 40 MG DISPERSABLE TABLET ONE (05:33)
[2019-10-11] MEDS ORDERED: METHADONE HCL 10 MG TABLET ONE (05:33)
[2019-10-11] MEDS: METHADONE 40 MG, METHADONE 10 MG PO SCH (06:34)
[2019-10-11] MEDS: PRENATAL VITAMINS W/ FOLIC ACID TABLET (FP) PO SCH (10:29)
[2019-10-11] MEDS: HYDROCHLOROTHIAZIDE 25 MG TABLET (FP) PO SCH (10:29)
[2019-10-11] MEDS: QUEtiapine FUMARATE 25 MG TABLET PO SCH (21:49)
[2019-10-11] MEDS: DOCUSATE SODIUM 100 MG CAPSULE (FP) PO SCH (21:49)
[2019-10-11] MEDS: THIAMINE HCL 100 MG TABLET (FP) PO SCH (21:49)
[2019-10-11] MEDS: MELATONIN 5 MG TABLETS PO SCH (21:49)
[2019-10-12] MEDS ORDERED: METHADONE HCL 40 MG DISPERSABLE TABLET ONE (05:33)
[2019-10-12] MEDS ORDERED: METHADONE HCL 10 MG TABLET ONE (05:33)
[2019-10-12] MEDS: METHADONE 40 MG, METHADONE 10 MG PO SCH (06:32)
[2019-10-12] MEDS: PRENATAL VITAMINS W/ FOLIC ACID TABLET (FP) PO SCH (10:41)
[2019-10-12] MEDS: HYDROCHLOROTHIAZIDE 25 MG TABLET (FP) PO SCH (10:41)
[2019-10-12] MEDS: DOCUSATE SODIUM 100 MG CAPSULE (FP) PO SCH (21:17)
[2019-10-12] MEDS: QUEtiapine FUMARATE 25 MG TABLET PO SCH (21:17)
[2019-10-12] MEDS: MELATONIN 5 MG TABLETS PO SCH (21:17)
[2019-10-12] MEDS: THIAMINE HCL 100 MG TABLET (FP) PO SCH (21:17)
[2019-10-13] MEDS ORDERED: METHADONE HCL 10 MG TABLET ONE (05:18)
[2019-10-13] MEDS ORDERED: METHADONE HCL 40 MG DISPERSABLE TABLET ONE (05:18)
[2019-10-13] MEDS: METHADONE 40 MG, METHADONE 10 MG PO SCH (06:41)
[2019-10-13] MEDS: HYDROCHLOROTHIAZIDE 25 MG TABLET (FP) PO SCH (10:53)
[2019-10-13] MEDS: PRENATAL VITAMINS W/ FOLIC ACID TABLET (FP) PO SCH (10:53)
[2019-10-13] MEDS: DOCUSATE SODIUM 100 MG CAPSULE (FP) PO SCH (21:21)
[2019-10-13] MEDS: QUEtiapine FUMARATE 25 MG TABLET PO SCH (21:21)
[2019-10-13] MEDS: THIAMINE HCL 100 MG TABLET (FP) PO SCH (21:21)
[2019-10-13] MEDS: MELATONIN 5 MG TABLETS PO SCH (21:21)
[2019-10-14] MEDS ORDERED: METHADONE HCL 10 MG TABLET ONE (05:40)
[2019-10-14] MEDS ORDERED: METHADONE HCL 40 MG DISPERSABLE TABLET ONE (05:40)
[2019-10-14] MEDS: METHADONE 40 MG, METHADONE 10 MG PO SCH (06:22)
[2019-10-14] MEDS: HYDROCHLOROTHIAZIDE 25 MG TABLET (FP) PO SCH (10:46)
[2019-10-14] MEDS: PRENATAL VITAMINS W/ FOLIC ACID TABLET (FP) PO SCH (10:46)
[2019-10-14] MEDS: MELATONIN 5 MG TABLETS PO SCH (21:04)
[2019-10-14] MEDS: THIAMINE HCL 100 MG TABLET (FP) PO SCH (21:04)
[2019-10-14] MEDS: QUEtiapine FUMARATE 25 MG TABLET PO SCH (21:04)
[2019-10-14] MEDS: DOCUSATE SODIUM 100 MG CAPSULE (FP) PO SCH (21:05)
[2019-10-15] MEDS ORDERED: METHADONE HCL 10 MG TABLET ONE (05:39)
[2019-10-15] MEDS ORDERED: METHADONE HCL 40 MG DISPERSABLE TABLET ONE (05:39)
[2019-10-15] MEDS: METHADONE 40 MG, METHADONE 10 MG PO SCH (06:18)
[2019-10-15] MEDS: HYDROCHLOROTHIAZIDE 25 MG TABLET (FP) PO SCH (10:24)
[2019-10-15] MEDS: PRENATAL VITAMINS W/ FOLIC ACID TABLET (FP) PO SCH (10:24)
[2019-10-15] MEDS: QUEtiapine FUMARATE 25 MG TABLET PO SCH (21:41)
[2019-10-15] MEDS: THIAMINE HCL 100 MG TABLET (FP) PO SCH (21:41)
[2019-10-15] MEDS: DOCUSATE SODIUM 100 MG CAPSULE (FP) PO SCH (21:41)
[2019-10-15] MEDS: MELATONIN 5 MG TABLETS PO SCH (21:41)
[2019-10-16] MEDS ORDERED: METHADONE HCL 10 MG TABLET ONE (05:42)
[2019-10-16] MEDS ORDERED: METHADONE HCL 40 MG DISPERSABLE TABLET ONE (05:42)
[2019-10-16] MEDS: METHADONE 40 MG, METHADONE 10 MG PO SCH (06:54)
[2019-10-16] MEDS: PRENATAL VITAMINS W/ FOLIC ACID TABLET (FP) PO SCH (10:22)
[2019-10-16] MEDS: HYDROCHLOROTHIAZIDE 25 MG TABLET (FP) PO SCH (10:22)
--- NOTE | 2019-10-16 15:06 | PN ---
[facility] Progress Note Note: Patient is scheduled for discharge tomorrow. Script for 30 days Seroquel 25 mg/hs will be electronically transmitted to [facility], [facility] [place] [address]
[2019-10-16] MEDS: MELATONIN 5 MG TABLETS PO SCH (21:41)
[2019-10-16] MEDS: DOCUSATE SODIUM 100 MG CAPSULE (FP) PO SCH (21:41)
[2019-10-16] MEDS: THIAMINE HCL 100 MG TABLET (FP) PO SCH (21:41)
[2019-10-16] MEDS: QUEtiapine FUMARATE 25 MG TABLET PO SCH (21:41)
[2019-10-17] MEDS ORDERED: METHADONE HCL 10 MG TABLET ONE (05:41)
[2019-10-17] MEDS ORDERED: METHADONE HCL 40 MG DISPERSABLE TABLET ONE (05:41)
[2019-10-17] MEDS: METHADONE 40 MG, METHADONE 10 MG PO SCH (06:09)
[2019-10-17 06:48] VITALS: PULSE 84; TEMP 97.7
[2019-10-17 09:34] VITALS: BP 132/81
[2019-10-17] MEDS: HYDROCHLOROTHIAZIDE 25 MG TABLET (FP) PO SCH (09:51)
[2019-10-17] MEDS: PRENATAL VITAMINS W/ FOLIC ACID TABLET (FP) PO SCH (09:51)
--- NOTE | 2019-10-17 11:28 | DS ---
[facility] Rehab Discharge Summary - [facility] Rehab Discharge Summary Admission Date: 09/21/19 Discharge Date: 10/17/19 - History Present History: Alcohol dependence, MMTP - Discharge Physical Exam Vital Signs: Vital Signs Temperature 97.7 F 10/17/19 06:46 Pulse Rate 84 10/17/19 09:07 Respiratory Rate 18 10/17/19 09:07 Blood Pressure 132/81 10/17/19 09:07 O2 Sat by Pulse Oximetry (%) 99 10/17/19 06:46 Ambulatory Orders Quetiapine Fumarate [Seroquel] 50 mg PO HS 10/03/11 Methadone [Dolophine -] 85 ml PO DAILY 09/17/19 Quetiapine Fumarate [Seroquel -] 25 mg PO HS #30 tablet 10/05/19 Albuterol Sulfate Inhaler - [Ventolin HFA Inhaler -] 1 - 2 inh IH Q4H PRN #1 inhaler 10/16/19 Hydrochlorothiazide [Hctz -] 25 mg PO DAILY #14 tablet 10/16/19 ros: denies etoh cravings, shakes, sweating and restlessness pe: alert and oriented x 3 skin warm and dry in nad ext full rom, no tremors amb ad reji denies si/hi a/p: etoh dependence mmtp htn asthma patient medically stable for discharge aftercare arranged for AE MMTP, appt 10/17/19 at 11am - Treatment Discharge Condition: Discharge condition good Hospital Course: Patient discharged from Rehab today. During course of treatment, she attended group meetings and 1:1 sessions with counselor. Patient states she is motivated to maintain sobriety and aftercare arranged for AE MMTP, appt today at 11am. Patient is medically stable and denies SI/HI. Medically advised to follow up with PCP as recommended. - Medication Discharge Medications: Ambulatory Orders Quetiapine Fumarate [Seroquel] 50 mg PO HS 10/03/11 Methadone [Dolophine -] 85 ml PO DAILY 09/17/19 Quetiapine Fumarate [Seroquel -] 25 mg PO HS #30 tablet 10/05/19 Albuterol Sulfate Inhaler - [Ventolin HFA Inhaler -] 1 - 2 inh IH Q4H PRN #1 inhaler 10/16/19 Hydrochlorothiazide [Hctz -] 25 mg PO DAILY #14 tablet 10/16/19 - Medication-Assisted Treatment (MAT) Medication-Assisted Treatment (MAT): Yes MAT Follow-up Referral: MMTP - Discharge Instructions Diet, activity, other medical instructions: Diet: lalito as tolerated Activity: ad reji as tolerated Other medical instructions: f/u with pcp as recommended - Follow-up Referral Minutes to complete discharge: 35 - AMA Did Patient Leave Against Medical Advice: No
== END 2019-10-17 09:56 | disposition home or self-care (01) | DRG 772 ==
LOC: YASAS 14:50 → Y3W 14:51
PROVIDERS: ADMIT Allergy & Immunology; ATTEND Allergy & Immunology
PROC: HZ42ZZZ Group Counseling for Substance Abuse Treatment, Cognitive-Behavioral (ICD-10-PCS; principal; 2019-09-21)
DX: F10.20 Alcohol dependence, uncomplicated (principal); F11.20 Opioid dependence, uncomplicated; I10 Essential (primary) hypertension; J45.909 Unspecified asthma, uncomplicated; Z91.018 Allergy to other foods

== ENCOUNTER 2021-08-29 17:07 | Inpatient (IN) | payer OTHER ==
[2021-08-29] MEDS ORDERED: MAG HYDROX/AL HYDROX/SIMETH 30 ML UNIT-DOSE CUP PO PRN (18:32)
[2021-08-29] MEDS ORDERED: ACETAMINOPHEN 325 MG TABLET (FP) PO PRN ×2 (18:32)
[2021-08-29] MEDS ORDERED: MAGNESIUM CITRATE 300 ML BOTTLE PO PRN (18:32)
[2021-08-29] MEDS ORDERED: BENZOCAINE/MENTHOL (CHLORASEPTIC ) LOZENGE MM PRN (18:32)
[2021-08-29] MEDS ORDERED: LOPERAMIDE HCL 2 MG CAPSULE PO PRN (18:32)
[2021-08-29] MEDS ORDERED: IBUPROFEN 400 MG TABLET (FP) PO PRN (18:32)
[2021-08-29] MEDS ORDERED: BISMUTH SUBSALICYLATE 524 MG/30 ML PO PRN (18:32)
[2021-08-29] MEDS ORDERED: DICYCLOMINE HCL 10 MG CAPSULE PO PRN (18:32)
[2021-08-29] MEDS ORDERED: MAGNESIUM HYDROX 2400MG/30ML ORAL SUSPENSION 30 ML CUP PO PRN (18:32)
[2021-08-29] MEDS ORDERED: MELATONIN 5 MG TABLETS PO PRN (18:32)
[2021-08-29] MEDS ORDERED: ONDANSETRON *ODT* 4 MG TABLET SL PRN (18:32)
[2021-08-29] MEDS ORDERED: IBUPROFEN 600 MG TABLET (FP) PO PRN (18:32)
[2021-08-29] MEDS ORDERED: ALBUTEROL SO4 HFA INHALER IH PRN (18:35)
[2021-08-30 00:14] VITALS: BMI 28.9
[2021-08-30] MEDS: diazePAM 5 MG TABLET PO PRN (01:11)
[2021-08-30] MEDS: THIAMINE HCL 100 MG TABLET (FP) PO SCH ×2 (01:15→22:57)
[2021-08-30] MEDS: diazePAM 5 MG TABLET PO SCH ×5 (01:16→22:57)
[2021-08-30] MEDS: PRENATAL VITAMINS W/ FOLIC ACID TABLET (FP) PO SCH (10:36)
[2021-08-30] MEDS: hydrOXYzine PAMOATE 25 MG CAPSULE (FP) PO PRN ×2 (10:37→17:59)
[2021-08-30 14:14] LABS: BLOOD UREA NITROGEN 17.3 mg/dL (7-18); CALCIUM 9.4 mg/dL (8.5-10.1)
[2021-08-30 14:16] LABS: HEMATOCRIT 35.9 % (32.4-45.2); HEMOGLOBIN 11.3 GM/dL (10.7-15.3); MCH 26.1 pg (25.7-33.7); MCHC 31.4 g/dl (32.0-36.0); MEAN CELL VOLUME 83.2 fl (80-96); MEAN PLT VOLUME 9.2 fl (7.5-11.1); PLATELET COUNT 321 10^3/uL (134-434); RBC 4.31 M/mm3 (3.60-5.2); RDW 14.3 % (11.6-15.6); WHITE BLOOD COUNT 4.5 K/mm3 (4.0-10.0)
[2021-08-30 14:18] LABS: ALBUMIN 3.2 g/dl (3.4-5.0)
[2021-08-30 14:19] LABS: BILIRUBIN,TOTAL 0.2 mg/dL (0.2-1); TOT PROT 6.9 g/dl (6.4-8.2)
[2021-08-30] MEDS: METHOCARBAMOL 500 MG TABLET PO PRN (22:56)
[2021-08-30] MEDS: QUEtiapine FUMARATE 50 MG TABLET PO SCH (22:57)
[2021-08-31 01:30] LABS: HIV INTERPRETATION NEGATIVE (NEGATIVE)
[2021-08-31] MEDS: diazePAM 5 MG TABLET PO SCH ×3 (07:21→22:55)
[2021-08-31] MEDS: hydrOXYzine PAMOATE 25 MG CAPSULE (FP) PO PRN (07:23)
[2021-08-31] MEDS: PRENATAL VITAMINS W/ FOLIC ACID TABLET (FP) PO SCH (10:11)
[2021-08-31] MEDS: HYDROCHLOROTHIAZIDE 25 MG TABLET (FP) PO SCH (10:11)
[2021-08-31] MEDS: diazePAM 5 MG TABLET PO PRN (18:24)
[2021-08-31] MEDS: THIAMINE HCL 100 MG TABLET (FP) PO SCH (22:56)
[2021-08-31] MEDS: METHOCARBAMOL 500 MG TABLET PO PRN (22:56)
[2021-08-31] MEDS: QUEtiapine FUMARATE 50 MG TABLET PO SCH (22:56)
[2021-09-01] MEDS: diazePAM 5 MG TABLET PO SCH ×2 (06:18→17:50)
[2021-09-01] MEDS: PRENATAL VITAMINS W/ FOLIC ACID TABLET (FP) PO SCH (10:19)
[2021-09-01] MEDS: HYDROCHLOROTHIAZIDE 25 MG TABLET (FP) PO SCH (10:19)
[2021-09-01] MEDS ORDERED: guaiFENesin 200 MG/10 ML 10 ML UNIT-DOSE CUPS PO ONE (18:28)
[2021-09-01] MEDS: QUEtiapine FUMARATE 50 MG TABLET PO SCH (22:36)
[2021-09-01] MEDS: hydrOXYzine PAMOATE 25 MG CAPSULE (FP) PO PRN (22:36)
[2021-09-01] MEDS: METHOCARBAMOL 500 MG TABLET PO PRN (22:36)
[2021-09-01] MEDS: THIAMINE HCL 100 MG TABLET (FP) PO SCH (22:36)
[2021-09-02] MEDS ORDERED: diazePAM 5 MG TABLET PO ONE (06:00)
[2021-09-02 09:27] VITALS: BP 123/94; PULSE 101; TEMP 98.4
[2021-09-02] MEDS: hydrOXYzine PAMOATE 25 MG CAPSULE (FP) PO PRN (10:34)
[2021-09-02] MEDS: PRENATAL VITAMINS W/ FOLIC ACID TABLET (FP) PO SCH (10:34)
[2021-09-02] MEDS: HYDROCHLOROTHIAZIDE 25 MG TABLET (FP) PO SCH (10:35)
[2021-09-02] MEDS: METHOCARBAMOL 500 MG TABLET PO PRN (10:35)
== END 2021-09-02 11:46 | disposition home or self-care (01) | DRG 773 ==
LOC: YASAS 17:07 → Y6N 20:42 → Y3N 08-30 00:46
PROVIDERS: ADMIT Allergy & Immunology; ATTEND Family Medicine Addiction Medicine
PROC: HZ2ZZZZ Detoxification Services for Substance Abuse Treatment (ICD-10-PCS; principal; 2021-08-29)
DX: F11.23 Opioid dependence with withdrawal (principal); F10.230 Alcohol dependence with withdrawal, uncomplicated; F12.20 Cannabis dependence, uncomplicated; F17.210 Nicotine dependence, cigarettes, uncomplicated; F19.282 Other psychoactive substance dependence with psychoactive substance-induced sleep disorder; F19.24 Other psychoactive substance dependence with psychoactive substance-induced mood disorder; G47.00 Insomnia, unspecified; I10 Essential (primary) hypertension; J45.909 Unspecified asthma, uncomplicated; E78.5 Hyperlipidemia, unspecified; G89.29 Other chronic pain; M54.50 Low back pain, unspecified; M25.562 Pain in left knee; M25.561 Pain in right knee; Z91.014 Allergy to mammalian meats
CPT/HCPCS: 36415; 80053; 85027; 86780; 87389; 87811; C9803-CS; U0003; U0005